=== PATIENT | female | born 1940 | race Caucasian/White ===

== ENCOUNTER 2018-03-07 12:03 | Observation (INO) | payer MEDICARE, OTHER ==
[2018-03-07] VITALS (7 sets, daily range): BP systolic 165–209; BP diastolic 103–118; Ht 170.2 cm; Wt 81.2 kg
[~2018-03-07] VITALS: Ht 170.2 cm; Wt 81.2 kg
--- NOTE | ~2018-03-07 | MORECARE ---
CASE MANAGEMENT DISCHARGE SUMMARY PATIENT: ALEX DREW UNIT: [id number] ADM DATE: 03/07/18 AGE: 77 : 41 SEX: F ROOM/BED: D.1122 AUTHOR: MAIKEL AREVALO PHYSICIAN: REFERRING PHYSICIAN: JONATHAN TSAI MD DATE OF SERVICE: 03/10/18 Discharge Plan Patient Name: ALEX DREW Facility: [facility]:[place] : 1940 Planned Disposition: Home Anticipated Discharge Date: 03/10/18 Discharge Date: Expected LOS: 3 Initial Reviewer: [id number] Initial Review Date: 03/07/2018 Generated: 03/10/18 10:21 am DCP- Discharge Planning Updated by [email or web address]: Lux Rodgers on 03/07/18 1:[address] Patient Name: ALEX DREW Encounter No: [id number] : 1940 Primary Insurance: MEDICARE A & B Anticipated DC Date: 03-08-2018 Planned Disposition: Home DISCHARGE PLANNING COMMENTS: CM RECEIVED REQUEST TO MEET WITH PT AND SON IN ROOM REGARDING MEDICARE PAYING FOR HOME MEDICATIONS WHILE IN OBSERVATION STATUS. CM MET WITH PT IN ROOM TO DISCUSS DISCHARGE PLANNING AND NEEDS. ALEX DREW provided verbal consent to discuss current and ongoing needs with/in the presence of: SONALFREDO. PT REPORTS LIVING AT HOME INDEPENDENTLY AND ALONE. PT HAS NO MEDICAL EQUIPMENT PROVIDER PREFERENCE AND NO MEDICAL EQUIPMENT AT HOME. PT HAS NO OUTSIDE SERVICES ASSISTING IN THE HOME AND PT'S SON CAN ASSIST AT HOME IF NEEDED. PT HAS 2 STEPS FROM OUTSIDE TO GET INTO THE HOME; PT HAS 12 STEPS TO GET DOWNSTAIRS TO DO LAUNDRY WITH NO STEPS ON MAIN LIVING FLOOR OF THE HOME. CM DISCUSSED AVAILABILITY OF HOME HEALTH, REHAB SERVICES AND MEDICAL EQUIPMENT. PT DENIES DISCHARGE NEEDS, REPORTS HER SON WILL PICK HER UP FOR DISCHARGE HOME. CM INFORMED PT THAT HOME MEDICATIONS ARE NOT PAID FOR BY MEDICARE DURING OBSERVATION IN THE HOSPITAL BUT THE HOSPITAL DOES NOT BILL THE PT FOR THE MEDICATIONS. PT AND SON HAD NO FURTHER QUESTIONS. PT PLANS TO DISCHARGE HOME ALONE, SON TO TRANSPORT. CM TO FOLLOW AND ASSIST NEEDED. Lux Rodgers CASE MANAGEMENT DCPIA - Discharge Planning Initial Assessment Updated by [id number]: Lux Rodgers on 03/07/18 2:13 pm * Is the patient Alert and Oriented? Yes * How many steps to enter\exit or inside your home? 2-0 -I * PCP DR. TSAI * Pharmacy [facility] * Preadmission Environment Home Alone * ADLs Independent * Equipment None * Other Equipment NO MEDICAL EQUIPMENT PROVIDER PREFERNECE * List name and contact numbers for known caregivers / representatives who currently or will assist patient after discharge: ALFREDO DREW, SON, * Verbal permission to speak to the caregivers and representatives has been obtained from the patient. Yes * Community resources currently utilized None * Please name any agencies selected above. NONE * Additional services required to return to the preadmission environment? No * Can the patient safely return to the preadmission environment? Yes * Has this patient been hospitalized within the prior 30 days at any hospital? No External Providers External Provider: [employer] [facility] Next Contact Date: 03/10/2018 Service Request Date: Service Type: Resolution: Reviewer: Comments: Coverage Notice Reviewer: [id number] - Lux Rodgers Notice Issued Date-Time: 03/10/2018 9:10 Notice Type: Patient Choice Letter Notice Delivered To: Patient Relationship to Patient: Weed Eradicator Name: Delivery Method: HAND - Hand Delivered Beatris Days: Prior Verbal Notification: Recipient Understood Notice: Yes Recipient Signature: Yes Med Rec Note Co-signed by Attending: Coverage Notice Comment: NO PROVIDER PREFERENCE FOR HHC Last DP export: 03/07/18 1:29 p Patient Name: VIKI ALEX Page 01176 at 0921 All edits/amendments must be made on the electronic document DICTATION DATE: 03/10/18920 ORE BRIDGE OPERATOR: LESLEY 03/10/18920 RPT#: [id number] DC DATE: STATUS: ADM IN [facility] [address] [place] [address] END OF REPORT
--- NOTE | ~2018-03-07 | MORECARE ---
CASE MANAGEMENT DISCHARGE SUMMARY PATIENT: ALEX DREW UNIT: [id number] ADM DATE: 03/07/18 AGE: 77 : 41 SEX: F ROOM/BED: D.8462 AUTHOR: MAIKEL AREVALO PHYSICIAN: REFERRING PHYSICIAN: JONATHAN TSAI MD DATE OF SERVICE: 03/07/18 Discharge Plan Patient Name: ALEX DREW [facility] [facility] 1940 Planned Disposition: Home Anticipated Discharge Date: 03/08/18 Discharge Date: Expected LOS: 1 Initial Reviewer: [id number] Initial Review Date: 03/07/2018 Generated: 03/07/18 3:15 pm DCPIA - Discharge Planning Initial Assessment Updated by [id number]: Lux Rodgers on 03/07/18 2:13 pm * Is the patient Alert and Oriented? Yes * How many steps to enter\exit or inside your home? 2--I * PCP DR. TSAI * Pharmacy [facility] * Preadmission Environment Home Alone * ADLs Independent * Equipment None * Other Equipment NO MEDICAL EQUIPMENT PROVIDER PREFERNECE * List name and contact numbers for known caregivers / representatives who currently or will assist patient after discharge: ALFREDO DREW, CHARLI, * Verbal permission to speak to the caregivers and representatives has been obtained from the patient. Yes * Community resources currently utilized None * Please name any agencies selected above. NONE * Additional services required to return to the preadmission environment? No * Can the patient safely return to the preadmission environment? Yes * Has this patient been hospitalized within the prior 30 days at any hospital? No Patient Name: ALEX DREW Page 20995 at 1415 All edits/amendments must be made on the electronic document DICTATION DATE: 03/07/181413 TIRE SERVICE SUPERVISOR: LESLEY 03/07/181413 RPT#: [id number] DC DATE: STATUS: ADM IN [facility] [address] [place] [address] END OF REPORT
--- NOTE | ~2018-03-07 | MORECARE ---
CASE MANAGEMENT DISCHARGE SUMMARY PATIENT: ALEX DREW UNIT: [id number] ADM DATE: 03/07/18 AGE: 77 : 41 SEX: F ROOM/BED: D.0324 AUTHOR: MAIKEL AREVALO PHYSICIAN: REFERRING PHYSICIAN: JONATHAN TSAI MD DATE OF SERVICE: 03/10/18 Discharge Plan Patient Name: ALEX DREW Facility: [facility]:[place] : 1940 Planned Disposition: Home with Home Health Anticipated Discharge Date: 03/10/18 Discharge Date: Expected LOS: 3 Initial Reviewer: [email or web address] Initial Review Date: 03/07/2018 Generated: 03/10/18 10:34 am DCP- Discharge Planning Updated by [id number]: Lux Rodgers on 03/07/18 1:[address] Patient Name: ALEX DREW Encounter No: [id number] : 1940 Primary Insurance: MEDICARE A & B Anticipated DC Date: 03-08-2018 Planned Disposition: Home DISCHARGE PLANNING COMMENTS: CM RECEIVED REQUEST TO MEET WITH PT AND SON IN ROOM REGARDING MEDICARE PAYING FOR HOME MEDICATIONS WHILE IN OBSERVATION STATUS. CM MET WITH PT IN ROOM TO DISCUSS DISCHARGE PLANNING AND NEEDS. ALEX DREW provided verbal consent to discuss current and ongoing needs with/in the presence of: SONALFREDO. PT REPORTS LIVING AT HOME INDEPENDENTLY AND ALONE. PT HAS NO MEDICAL EQUIPMENT PROVIDER PREFERENCE AND NO MEDICAL EQUIPMENT AT HOME. PT HAS NO OUTSIDE SERVICES ASSISTING IN THE HOME AND PT'S SON CAN ASSIST AT HOME IF NEEDED. PT HAS 2 STEPS FROM OUTSIDE TO GET INTO THE HOME; PT HAS 12 STEPS TO GET DOWNSTAIRS TO DO LAUNDRY WITH NO STEPS ON MAIN LIVING FLOOR OF THE HOME. CM DISCUSSED AVAILABILITY OF HOME HEALTH, REHAB SERVICES AND MEDICAL EQUIPMENT. PT DENIES DISCHARGE NEEDS, REPORTS HER SON WILL PICK HER UP FOR DISCHARGE HOME. CM INFORMED PT THAT HOME MEDICATIONS ARE NOT PAID FOR BY MEDICARE DURING OBSERVATION IN THE HOSPITAL BUT THE HOSPITAL DOES NOT BILL THE PT FOR THE MEDICATIONS. PT AND SON HAD NO FURTHER QUESTIONS. PT PLANS TO DISCHARGE HOME ALONE, SON TO TRANSPORT. CM TO FOLLOW AND ASSIST NEEDED. Lux Rodgers CASE MANAGEMENT DCPIA - Discharge Planning Initial Assessment Updated by [id number]: Lux Rodgers on 03/07/18 2:13 pm * Is the patient Alert and Oriented? Yes * How many steps to enter\exit or inside your home? 2-0 12-I * PCP DR. TSAI * Pharmacy [facility] * Preadmission Environment Home Alone * ADLs Independent * Equipment None * Other Equipment NO MEDICAL EQUIPMENT PROVIDER PREFERNECE * List name and contact numbers for known caregivers / representatives who currently or will assist patient after discharge: ALFREDO DREW, SON, * Verbal permission to speak to the caregivers and representatives has been obtained from the patient. Yes * Community resources currently utilized None * Please name any agencies selected above. NONE * Additional services required to return to the preadmission environment? No * Can the patient safely return to the preadmission environment? Yes * Has this patient been hospitalized within the prior 30 days at any hospital? No Coverage Notice Reviewer: [id number] - Lux Driscollwell Notice Issued Date-Time: 03/10/2018 9:10 Notice Type: Patient Choice Letter Notice Delivered To: Patient Relationship to Patient: Babysitter Name: Delivery Method: HAND - Hand Delivered Beatris Days: Prior Verbal Notification: Recipient Understood Notice: Yes Recipient Signature: Yes Med Rec Note Co-signed by Attending: Coverage Notice Comment: NO PROVIDER PREFERENCE FOR HHC Last DP export: 03/10/18 8:21 a Patient Name: ALEX DREW Page 23881 at 0934 All edits/amendments must be made on the electronic document DICTATION DATE: 03/10/18933 FIRST OFFICER AND FLIGHT INSTRUCTOR: LESLEY 03/10/18933 RPT#: [id number] DC DATE: STATUS: ADM IN [facility] [address] [place] [address] END OF REPORT
--- NOTE | ~2018-03-07 | MORECARE ---
CASE MANAGEMENT DISCHARGE SUMMARY PATIENT: ALEX DREW UNIT: [id number] ADM DATE: 03/07/18 AGE: 77 : 41 SEX: F ROOM/BED: D.2930 AUTHOR: MAIKEL AREVALO PHYSICIAN: REFERRING PHYSICIAN: JONATHAN TSAI MD DATE OF SERVICE: 03/10/18 Discharge Plan Patient Name: ALEX DREW Facility: [facility]:[place] : 1940 Planned Disposition: Home with Home Health Anticipated Discharge Date: 03/10/18 Discharge Date: Expected LOS: 3 Initial Reviewer: [email or web address] Initial Review Date: 03/07/2018 Generated: 03/10/18 10:42 am Comments DCP- Discharge Planning Updated by [email or web address]: Lux Rodgers on 03/10/18 8:[address] Patient Name: ALEX DREW Encounter No: [id number] : 1940 Primary Insurance: MEDICARE A & B Anticipated DC Date: 03-10-2018 Planned Disposition: Home with Home Health External Planned Provider: [employer] REPLACED BY [facility] DCP follow-up note: CM RECEIVED ORDER FOR HOME HEALTH PHYSICAL THERAPY, MET WITH PT IN ROOM TO DISCUSS DISCHARGE PLANNING AND NEEDS. PT REPORTS HAVING WALKER AT HOME, DENIES NEED OF REHAB PLACEMENT AND WILL ACCEPT HOME HEALTH FOR PHSYICAL THERAPY SINCE THE DOCTOR ORDERED IT. CHOICE SIGNED WITH NO PREFERENCE ON PROVIDER. CM VERIFIED PT'S CELL PHONE NUMBER, , SENT CORRECTION TO REGISTRATION. PT WILL GO TO HER HOME FOR A FEW DAYS UP TO TWO WEEKS AND THEN MOVE CLOSER TO FAMILY AT [address] [place] [address] WHERE SHE WILL HAVE NO STEPS AT ALL TO GO UP OR DOWN. PT REPORTS HER COUSIN OR SON WILL DRIVE HER HOME AT DISCHARGE TODAY. PT DENIES FURHTER DISCHARGE NEEDS. CM CALLED [employer] REPLACED BY [facility], , SPOKE TO AMEYA WHO TOOK REFERRAL AND WILL CONTACT DR. TSAI FOR CLARIFICATION TO SEE IF OBSERVATION AND ASSESSMENT FOR MEDICINE COMPLIANCE AND TEACHING CAN BE ADDED TO ORDER. CM FAXED ORDER AND REFERRAL INFORMATION ALONG WITH DISCHARGE INFORMATION TO [employer] AT [phone]. PHYSICIAN PRACTICE COORDINATOR NURSE NOTIFIED. Lux Rodgers, CASE MANAGEMENT DCP- Discharge Planning Updated by [id number]: Lux Rodgers on 03/07/18 1:[address] Patient Name: ALEX DREW Encounter No: [id number] : 1940 Primary Insurance: MEDICARE A & B Anticipated DC Date: 03-08-2018 Planned Disposition: Home DISCHARGE PLANNING COMMENTS: CM RECEIVED REQUEST TO MEET WITH PT AND SON IN ROOM REGARDING MEDICARE PAYING FOR HOME MEDICATIONS WHILE IN OBSERVATION STATUS. CM MET WITH PT IN ROOM TO DISCUSS DISCHARGE PLANNING AND NEEDS. ALEX DREW provided verbal consent to discuss current and ongoing needs with/in the presence of: SONALFREDO. PT REPORTS LIVING AT HOME INDEPENDENTLY AND ALONE. PT HAS NO MEDICAL EQUIPMENT PROVIDER PREFERENCE AND NO MEDICAL EQUIPMENT AT HOME. PT HAS NO OUTSIDE SERVICES ASSISTING IN THE HOME AND PT'S SON CAN ASSIST AT HOME IF NEEDED. PT HAS 2 STEPS FROM OUTSIDE TO GET INTO THE HOME; PT HAS 12 STEPS TO GET DOWNSTAIRS TO DO LAUNDRY WITH NO STEPS ON MAIN LIVING FLOOR OF THE HOME. CM DISCUSSED AVAILABILITY OF HOME HEALTH, REHAB SERVICES AND MEDICAL EQUIPMENT. PT DENIES DISCHARGE NEEDS, REPORTS HER SON WILL PICK HER UP FOR DISCHARGE HOME. CM INFORMED PT THAT HOME MEDICATIONS ARE NOT PAID FOR BY MEDICARE DURING OBSERVATION IN THE HOSPITAL BUT THE HOSPITAL DOES NOT BILL THE PT FOR THE MEDICATIONS. PT AND SON HAD NO FURTHER QUESTIONS. PT PLANS TO DISCHARGE HOME ALONE, SON TO TRANSPORT. CM TO FOLLOW AND ASSIST NEEDED. Lux Rodgers, CASE MANAGEMENT DCPIA - Discharge Planning Initial Assessment Updated by [email or web address]: Lux Rodgers on 03/07/18 2:13 pm * Is the patient Alert and Oriented? Yes * How many steps to enter\exit or inside your home? 2--I * PCP DR. TSAI * Pharmacy [facility] * Preadmission Environment Home Alone * ADLs Independent * Equipment None * Other Equipment NO MEDICAL EQUIPMENT PROVIDER PREFERNECE * List name and contact numbers for known caregivers / representatives who currently or will assist patient after discharge: ALFREDO DREW, CHARLI, * Verbal permission to speak to the caregivers and representatives has been obtained from the patient. Yes * Community resources currently utilized None * Please name any agencies selected above. NONE * Additional services required to return to the preadmission environment? No * Can the patient safely return to the preadmission environment? Yes * Has this patient been hospitalized within the prior 30 days at any hospital? No Coverage Notice Reviewer: [id number] Lj Rodgers Notice Issued Date-Time: 03/10/2018 9:10 Notice Type: Patient Choice Letter Notice Delivered To: Patient Relationship to Patient: Brick And Tile Making Machine Operator Name: Delivery Method: HAND - Hand Delivered Beatris Days: Prior Verbal Notification: Recipient Understood Notice: Yes Recipient Signature: Yes Med Rec Note Co-signed by Attending: Coverage Notice Comment: NO PROVIDER PREFERENCE FOR HHC Last DP export: 03/10/18 8:34 a Patient Name: VIKI OCTOBER Page 11671 at 0942 All edits/amendments must be made on the electronic document DICTATION DATE: 03/10/18940 INTERN BRAND: LESLEY 03/10/18940 RPT#: [id number] DC DATE: STATUS: ADM IN [facility] [address] [place] [address] END OF REPORT
--- NOTE | ~2018-03-07 | HP ---
PATIENT: ALEX DREW MEDICAL RECORD: [id number] ACCOUNT: [id number] LOCATION:[address] : [birth year] ADMISSION DATE: 03/07/18 PCP: JONATHAN TSAI MD HISTORY AND PHYSICAL EXAMINATION REASON FOR ADMISSION: Right lower extremity pain with uncontrolled hypertension. HISTORY OF PRESENT ILLNESS: The patient is a 77-year-old female with history of essential hypertension. She states that she fell at home about 2 months ago. Her leg has been bothering her since that time. It became worse over the last 4-5 days. It hurts from the right groin anteriorly into the ankle but not into the foot. She denies back pain. She took a Medrol Dosepak few weeks ago without improvement in her symptoms. She has been having trouble with her gait and having trouble bearing weight on her right leg due to pain. She came in with her son today. Her initial blood pressure was quite elevated at 218/128. The patient was allowed to rest, was given 0.1 mg of clonidine. Blood pressure was checked serially every 15 minutes for the last hour. Her pressures dropped to 180/120 with heart rate of 80. With further history taking, the patient states she took her Hyzaar this morning; but after reviewing her pharmacy record, she has not filled either her Norvasc 10 mg daily or Hyzaar 100/25 since October of 2016. She denies headache or visual changes, but in light of inability to lower her blood pressure, being admitted to the hospital for blood pressure control and pain control. PAST MEDICAL HISTORY: Essential hypertension; history of colitis, she was hospitalized in January of 2014; remote TIA; hyperlipidemia; and osteoarthritis. PAST SURGICAL HISTORY: MADELYN-BSO and tonsillectomy. ALLERGIES: PENICILLIN. SOCIAL HISTORY: She has never smoked, drank alcohol, or used any illicit drugs. She is for the last 3 years. 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 FAMILY HISTORY: Significant for heart disease. HOME MEDICATIONS: Tylenol No. 3 one to two q. 6 hours p.r.n. back pain; Valium 5 mg at night for low back pain; Ambien 10 mg at bedtime p.r.n. sleep; Lamisil AF 1% topical spray powder to skin twice daily; Lexapro 10 mg daily; Lamictal 100 mg daily; and Crestor 10 mg on Wednesday, Wednesday, and Wednesday. She has been noncompliant on Norvasc 10 mg a day and losartan 100/25 one q.a.m. REVIEW OF SYSTEMS: GENERAL: Denies fever, fatigue, and poor appetite. HEENT: No recent visual change, headache, sinus congestion, or sore throat. RESPIRATORY: Denies shortness of breath or cough. CARDIAC: Denies chest pain, palpitations, PND, orthopnea, or edema. GASTROINTESTINAL: No nausea, vomiting, change in stools, or blood per rectum. GENITOURINARY: No incontinence. GYNECOLOGIC: No vaginal bleeding. ENDOCRINE: Denies polyuria, polydipsia, heat or cold intolerance. NEUROLOGIC: Remote history of TIA with negative workup. No history of stroke. HISTORY AND PHYSICAL [id number] ALEX DREW She complains of lancing pain in her right groin, radiating into her right leg anteriorly and into the ankle. She denies back pain by her history. She says she has had a slight limp on the right leg due to pain and slight decreased strength in her lower extremities, she thinks. PSYCHIATRIC: Denies depressed mood. PHYSICAL EXAMINATION: VITAL SIGNS: Her weight is 190 pounds, height is 68 inches, and BMI is 28.9. Blood pressure was 218/128 initially, later in exam was 180/120 with heart rate of 80 and regular. She is afebrile. HEENT: Normocephalic. Eyes are clear. Pupils are reactive. EOMI. NECK: No bruits or masses. CHEST: Clear. HEART: Regular rate and rhythm without MGR. PMI appropriate. ABDOMEN: Soft, mildly obese, and nontender. PELVIC: Deferred. EXTREMITIES: She has pain in her right lower extremity to flexing at the hip. She has some sensitivity to touch in the right anterior thigh and the anterior tibial area. No color changes are noted. She has good distal pulses. NEUROLOGIC: Oriented to person, place, and time. Cranial nerves intact. Gait favors the right. She has positive SLR at 45 degrees on the right. MUSCULOSKELETAL: She has pain in the lower lumbar spine with flexion and extension, side bending. LABORATORY DATA: Currently pending. ASSESSMENT: 1. Uncontrolled hypertension/noncompliance to antihypertensives. 2. Sciatica, right lower extremity. 3. Mild lumbar scoliosis with L1-L2 degenerative disc disease and osteophytes noted on previous x-ray a month ago. 4. History of depression. 5. Colitis. 6. Postmenopausal. 7. Hyperlipidemia. PLAN: The patient will be admitted for blood pressure control and cardiac monitoring. After blood pressure control, we will proceed with workup of radiculopathy. TRANSINT:[id number] Voice Confirmation ID: [id number] DOCUMENT ID: [id number] JONATHAN TSAI MD at 1752 CC: [id number] DICTATION DATE: 03/07/18 1242 PHYSICAL SCIENCES INSTRUCTOR: 03/07/18 1522 ADM IN [place] [id number] [place] [address]
--- NOTE | ~2018-03-07 | MORECARE ---
CASE MANAGEMENT DISCHARGE SUMMARY PATIENT: ALEX DREW UNIT: [id number] ADM DATE: 03/07/18 AGE: 77 : 41 SEX: F ROOM/BED: D.7341 AUTHOR: MAIKEL AREVALO PHYSICIAN: REFERRING PHYSICIAN: JONATHAN TSAI MD DATE OF SERVICE: 03/07/18 Discharge Plan Patient Name: ALEX DREW Facility: [facility]:[place] : 1940 Planned Disposition: Home Anticipated Discharge Date: 03/08/18 Discharge Date: Expected LOS: 1 Initial Reviewer: [email or web address] Initial Review Date: 03/07/2018 Generated: 03/07/18 3:29 pm Comments DCP- Discharge Planning Updated by [email or web address]: Lux Rodgers on 03/07/18 1:[address] Patient Name: ALEX DREW Encounter No: [id number] : 1940 Primary Insurance: MEDICARE A & B Anticipated DC Date: 03-08-2018 Planned Disposition: Home DISCHARGE PLANNING COMMENTS: CM RECEIVED REQUEST TO MEET WITH PT AND SON IN ROOM REGARDING MEDICARE PAYING FOR HOME MEDICATIONS WHILE IN OBSERVATION STATUS. CM MET WITH PT IN ROOM TO DISCUSS DISCHARGE PLANNING AND NEEDS. ALEX DREW provided verbal consent to discuss current and ongoing needs with/in the presence of: SONALFREDO. PT REPORTS LIVING AT HOME INDEPENDENTLY AND ALONE. PT HAS NO MEDICAL EQUIPMENT PROVIDER PREFERENCE AND NO MEDICAL EQUIPMENT AT HOME. PT HAS NO OUTSIDE SERVICES ASSISTING IN THE HOME AND PT'S SON CAN ASSIST AT HOME IF NEEDED. PT HAS 2 STEPS FROM OUTSIDE TO GET INTO THE HOME; PT HAS 12 STEPS TO GET DOWNSTAIRS TO DO LAUNDRY WITH NO STEPS ON MAIN LIVING FLOOR OF THE HOME. CM DISCUSSED AVAILABILITY OF HOME HEALTH, REHAB SERVICES AND MEDICAL EQUIPMENT. PT DENIES DISCHARGE NEEDS, REPORTS HER SON WILL PICK HER UP FOR DISCHARGE HOME. CM INFORMED PT THAT HOME MEDICATIONS ARE NOT PAID FOR BY MEDICARE DURING OBSERVATION IN THE HOSPITAL BUT THE HOSPITAL DOES NOT BILL THE PT FOR THE MEDICATIONS. PT AND SON HAD NO FURTHER QUESTIONS. PT PLANS TO DISCHARGE HOME ALONE, SON TO TRANSPORT. CM TO FOLLOW AND ASSIST NEEDED. Lux Rodgers CASE MANAGEMENT DCPIA - Discharge Planning Initial Assessment Updated by [id number]: Lux Rodgers on 03/07/18 2:13 pm * Is the patient Alert and Oriented? Yes * How many steps to enter\exit or inside your home? 2-0 12-I * PCP DR. TSAI * Pharmacy [facility] * Preadmission Environment Home Alone * ADLs Independent * Equipment None * Other Equipment NO MEDICAL EQUIPMENT PROVIDER PREFERNECE * List name and contact numbers for known caregivers / representatives who currently or will assist patient after discharge: ALFREDO DREW, SON, * Verbal permission to speak to the caregivers and representatives has been obtained from the patient. Yes * Community resources currently utilized None * Please name any agencies selected above. NONE * Additional services required to return to the preadmission environment? No * Can the patient safely return to the preadmission environment? Yes * Has this patient been hospitalized within the prior 30 days at any hospital? No Last DP export: 03/07/18 1:15 p Patient Name: VIKI OCTOBER Page 13487 at 1429 All edits/amendments must be made on the electronic document DICTATION DATE: 03/07/181428 CODER: LESLEY 03/07/181428 RPT#: [id number] DC DATE: STATUS: ADM IN [facility] [address] [place] [address] END OF REPORT
[~2018-03-07 12:03] MED LIST: AMBIEN10 MG PO; DICLOFENAC SODI50 MG PO; FLAGYL500 MG PO; HYDROCODON-ACE1 EAC7 PO; HYZAAR 100-25 T1 TAB PO; LEVAQUIN750 MG PO; LEVSIN/ANASP0.125 MG PO; NORVASC10 MG PO; PEPCID20 MG PO; STERAPRED DS 1010 MG PO; TYLENOL W/CODEI1 TAB PO; ULTRAM50 MG OR; VALIUM5 MG OR; ZOFRAN4 MG PO
[2018-03-07 13:58] LABS: BASOPHILS 0.3 % (0-2); EOSINOPHILS 1.6 % (0-7); HEMATOCRIT 40.6 % (36.0-48.0); HEMOGLOBIN 13.4 g/dL (12-16); IMMATURE GRANULOCYTES 0.2 % (0-5); LYMPHOCYTES 26.4 % (15-50); MCH 29.8 pg (26.0-34.0); MCV 90.2 fL (80.0-100.0); MEAN PLATELET VOLUME 11.6 fL (7.4-10.4); MONOCYTES 11.1 % (2-11); NEUTROPHILS 60.4 % (40-80); PLATELET COUNT 174 10x3/uL (130-400); RDW 13.4 % (11.5-14.5); WBC 6.4 10x3/uL (4.8-10.8)
[2018-03-07 14:32] LABS: ANION GAP 10.3 mmol/L (8-16); CALCIUM 8.7 mg/dL (8.5-10.1); CREATININE - SERUM 1.1 mg/dL (0.6-1.3); POTASSIUM - SERUM 4.3 mmol/L (3.5-5.1); T4 THYROXIN - FREE 1.02 ng/dL (0.76-1.46); THYROID STIMULATING HORMONE 2.12 uIU/mL (0.36-3.74)
[2018-03-07 15:05] LABS: ERYTHROCYTE SEDIMENTATION RATE 10 mm/hr (0-30)
[2018-03-08] VITALS (8 sets, daily range): BP systolic 141–202; BP diastolic 72–112
[2018-03-08 13:38] LABS: APPEARANCE CLEAR (CLEAR); BILIRUBIN NEGATIVE (NEGATIVE); COLOR YELLOW (YELLOW); GLUCOSE NEGATIVE (NEGATIVE); KETONE NEGATIVE (NEGATIVE); NITRITE NEGATIVE (NEGATIVE); PROTEIN NEGATIVE (NEGATIVE); SPECIFIC GRAVITY 1.015 (1.005-1.020); UROBILINOGEN NORMAL (NORMAL)
[2018-03-09 00:30] VITALS: BP 136/78
[2018-03-09 05:33] VITALS: BP 145/81
[2018-03-09 08:12] VITALS: BP 141/93
[2018-03-09 11:22] VITALS: BP 158/93
[2018-03-09 15:41] VITALS: BP 143/86
[2018-03-09 21:31] VITALS: BP 172/88
[2018-03-10 00:49] VITALS: BP 169/87
[2018-03-10 05:58] VITALS: BP 168/71
[2018-03-10] MEDS ORDERED: PEPCID PO (07:38)
[2018-03-10] MEDS ORDERED: LAMICTAL100 MG PO (07:38)
[2018-03-10] MEDS ORDERED: CYCLOBENZAPRINE10 MG PO (07:38)
[2018-03-10] MEDS ORDERED: BYSTOLIC5 MG PO (07:38)
[2018-03-10] MEDS ORDERED: HYDROCODON-ACE1 EAC7 PO (07:40)
[2018-03-10] MEDS ORDERED: MEDROL DOSE PACK4 MG PO (07:40)
[2018-03-10 08:54] VITALS: BP 195/87
[2018-03-10 10:50] VITALS: BP 178/94
== END 2018-03-10 11:45 | disposition home or self-care (01) ==
LOC: D.M2 12:03 → OBSVTIME 12:05 → D.M2 13:15
PROVIDERS: Family Medicine
DX: M51.16 Intervertebral disc disorders with radiculopathy, lumbar region (principal); I10 Essential (primary) hypertension; M41.9 Scoliosis, unspecified; Z86.73 Personal history of transient ischemic attack (TIA), and cerebral infarction without residual deficits; E78.5 Hyperlipidemia, unspecified; M19.90 Unspecified osteoarthritis, unspecified site; M25.78 Osteophyte, vertebrae; F32.9 Major depressive disorder, single episode, unspecified; Z78.0 Asymptomatic menopausal state; K52.9 Noninfective gastroenteritis and colitis, unspecified; Z91.14 Patient's other noncompliance with medication regimen

== ENCOUNTER → 2020-07-16 16:20 | Outpatient (CLI) | payer MEDICARE, BC ==
[2018-03-07 13:23] VITALS: BMI 29.8
[~2020-07-16 16:20] MED LIST changes: +BYSTOLIC5 MG PO; +CYCLOBENZAPRINE10 MG PO; +LAMICTAL100 MG PO; +MEDROL DOSE PACK4 MG PO; +PEPCID PO
== END | disposition home or self-care (01) ==
LOC: D.RAD 16:20
PROVIDERS: ATTEND Specialist
DX: R68.84 Jaw pain (principal); W19.XXXA Unspecified fall, initial encounter